=== PATIENT | female | born 2000 | race Caucasian/White ===

== ENCOUNTER 2021-01-13 21:37 | Emergency (ER) | payer SELFPAY ==
--- NOTE | 2021-01-13 22:00 | ED.SKABFB ---
HPI - Skin/Abscess/Foreign Bdy General Chief complaint: Skin/Abscess/Foreign Body Stated complaint: sore on abdomen/infection Time Seen by Provider: 01/13/21 22:00 Source: family Mode of arrival: ambulatory Limitations: no limitations History of Present Illness HPI narrative: 20-year-old female with autism presents to the ER with a 3 day history of -- left lower quadrant 5 cm diameter tender indurated erythematous lesion with the 2 cm central raised area patient refused any blood work. MD complaint: rash and other ( Cellulitis left lower anterior abdominal wall) Onset (ago): day(s) ( 3 days) Tetanus up to date: unsure ( patient's grandmother refused tetanus immunization. She will follow-up with PCP) Location: generalized ( left lower anterior abdominal wall) Severity: mild Severity scale (1-10): 3 Quality: aching Pain Consistency: constant Relieving factors: none Exacerbating factors: none Associated symptoms: denies other symptoms Treatments prior to arrival: none Related Data Home Medications Medication Instructions Recorded Confirmed No Home Medications 01/13/21 01/13/21 Allergies Allergy/AdvReac Type Severity Reaction Status Date / Time No Known Allergies Allergy Verified 01/13/21 22:20 Review of Systems Review of Systems: All systems reviewed & are unremarkable except as noted in HPI and below ROS unobtainable: Yes other ( patient has cognitive impairment. Unable to answers questions appropria) Constitutional: Constitutional: Reports no additional constitutional complaints Comments: no fever or chills. Eyes: Eyes: Reports no additional eye complaints ENT: Reports system reviewed and no additional complaints, except as documented Cardiovascular: Cardiovascular: Reports no additional cardiovascular complaints Respiratory: Respiratory: Reports no additional respiratory complaints Gastrointestinal: Gastrointestinal: Reports no additional gastrointestinal complaints Genitourinary: Genitourinary: Reports no additional female genitourinary complaints Musculoskeletal: Musculoskeletal: Reports no additional musculoskeletal complaints Integumentary/Breasts: Skin/Breast: Reports system reviewed and no additional complaints, except as docu Comments: Left lower anterior abdominal wall cellulitis measuring 5 cm in diameter Neurologic: Reports system reviewed and no additional complaints, except as documented Psychiatric: Psychiatric: Reports other ( patient is autistic and unable to assess psychiatric status) Endocrine: Endocrine: Reports no additional endocrine complaints Hematologic/Lymphatic: Hematologic/Lymphatic: Reports no additional hematologic/lymphatic complaints Allergic/Immunologic: Allergic/Immunologic: Reports no additional allergic/immunologic complaints Exam Const: General: cooperative, healthy appearing and comfortable HENMT: Head: normal to inspection Ears: hearing grossly normal bilaterally General nose exam: Normal external nose present Face and sinus: normal facial exam Mouth: Yes Normal oral and palatal mucosa present Throat: posterior oropharynx normal Eyes: General: appearance normal, both eyes and all related structures Eyelids: eyelids normal Conjunctivae: conjunctivae normal Sclera: sclerae normal Pupils: Equal, round and reactive pupils present Neck: Neck: normal visual inspection and full ROM Thyroid: thyroid normal Chest: Chest palpation & inspection: normal inspection of the chest Resp: Effort & Inspection: normal respiratory effort and able to speak in complete sentences Cardio: Palpation: normal PMI Rate: regular rate Rhythm: regular rhythm Heart sounds: S1 normal heart sound present and S2 normal heart sound present GI: Inspection: normal to inspection : General: Yes no CVA tenderness Back/Spine/Pelvis: Back: no CVA tenderness Skin: General skin exam: normal color and other ( 5 cm claribel left lower anterior abdominal wall cellulitis . tender.
[2021-01-13 22:01] VITALS: BP 129/78; PULSE 97; RESP 16; TEMP 36.4; O2SAT 98
[2021-01-13 22:22] VITALS: BP 130/88; PULSE 88; RESP 16; TEMP 36.4; O2SAT 98
== END 2021-01-13 22:24 | disposition home or self-care (01) ==
PROVIDERS: Emergency Provider Internal Medicine Critical Care Medicine; PCP Family Medicine
DX: L03.311 Cellulitis of abdominal wall (principal)
CPT/HCPCS: 99283

== ENCOUNTER 2022-08-01 13:30 | Emergency (ER) | payer MEDICAID, SELFPAY ==
--- NOTE | ~2022-08-01 | XR_ITS ---
Left ankle Technique: AP, oblique, and lateral views were obtained. Clinical History: Pain Findings: No acute fracture or dislocation is seen. Osseous alignment is anatomic. Ankle mortise and other visualized joint spaces are preserved. Soft tissues are otherwise unremarkable. Impression: Unremarkable left ankle. Reviewed, dictated and finalized at location . Impression: Unremarkable left ankle.
[2022-08-01 13:43] VITALS: BP 138/83; PULSE 95; RESP 18; TEMP 36.4; O2SAT 99
--- NOTE | 2022-08-01 14:04 | ED.LOWEXIN ---
HPI - Extremity Injury (Lower) General Chief Complaint: Extremity Injury, Lower Stated Complaint: left ankle/foot pain Time Seen by Provider: 08/01/22 13:39 History of Present Illness HPI Narrative: Pt thinks she twisted her right ankle yesterday. Pt noted swelling and bruising to lateral ankle. Related Data Home Medications Medication Instructions Recorded Confirmed No Home Medications 01/13/21 08/01/22 Allergies Allergy/AdvReac Type Severity Reaction Status Date / Time No Known Allergies Allergy Verified 08/01/22 13:58 Review of Systems Review of Systems: All systems reviewed & are unremarkable except as noted in HPI and below Exam Const: General: healthy appearing Nutritional Appearance: well nourished Orientation/consciousness: patient oriented x3 Limitations: no limitations Skin: Other: bruising noted dependent areas right lateral foot/ankle Neuro: General: patient oriented x3, moves all extremities and no focal motor deficits Speech: normal speech Extrem: Other: tender lateral malleolus right with bruising and swelling noted Course Vital Signs Vital signs: Vital Signs Oxygen Delivery Room Air 08/01/22 13:37 Temperature 97.6 F 08/01/22 13:43 Pulse Rate 95 08/01/22 13:43 Respiratory Rate 18 08/01/22 13:43 Blood Pressure 138/83 08/01/22 13:43 Pulse Oximetry 99 08/01/22 13:43 Oxygen Delivery Room Air 08/01/22 13:43 Discharge Plan Discharge Prescriptions: No Action No Home Medications Follow-up/Referrals: Kenyon Santillan MD [Primary Care Provider] -
[2022-08-01 14:40] VITALS: BP 130/78; PULSE 88; RESP 18; O2SAT 98
== END 2022-08-01 14:40 | disposition home or self-care (01) ==
PROVIDERS: Emergency Provider Emergency Medicine; PCP Family Medicine
DX: S93.402A Sprain of unspecified ligament of left ankle, initial encounter (principal); X50.0XXA Overexertion from strenuous movement or load, initial encounter
CPT/HCPCS: 73610; 99283

== ENCOUNTER 2022-09-20 11:32 | Outpatient (CLI) | payer MEDICAID, SELFPAY ==
--- NOTE | ~2022-09-20 | XR_ITS ---
Left ankle Technique: AP, oblique, and lateral views were obtained. Clinical History: Pain Findings: No acute fracture or dislocation is seen. Osseous alignment is anatomic. Ankle mortise and other visualized joint spaces are preserved. Soft tissues are otherwise unremarkable. Impression: Unremarkable left ankle. Reviewed, dictated and finalized at location . Impression: Unremarkable left ankle.
== END 2022-09-20 11:33 | disposition home or self-care (01) ==
LOC: CHSIMG 11:35
PROVIDERS: PCP Family Medicine; Visit Provider Family Medicine
DX: M25.572 Pain in left ankle and joints of left foot (principal)
CPT/HCPCS: 73610

== ENCOUNTER 2022-10-02 14:38 | Outpatient (RCR) | payer MEDICAID, SELFPAY ==
--- NOTE | 2022-09-25 10:31 | PCPTNOTE ---
patient had to cancel her PT evaluation today. she is having a tough day, and her family is unable to get her here today. she is scheduled for PT evaluation next week on Saturday10/02/22.
--- NOTE | 2022-10-03 07:44 | OPREHPOC ---
Outpatient Therapy Plan of Care This is a Multidisciplinary Plan of Care that may contain components documented by all disciplines (PT, OT, and ST.) PT Problem 1 PT Problem #1 Knowledge Deficit PT Goal 1 Goal 1. Patient/family to be independent with HEP to improve progress made in PT. Target Visit 4 PT Problem 2 PT Problem #2 Impaired Range of Motion PT Goal 1 Goal 1. Patient to achieve 10 degrees of AROM R ankle dorsiflexion to aid in equalizing step length during ambulation. Target Visit 9 PT Problem 3 PT Problem #3 Impaired Strength PT Goal 1 Goal 1. Patient to improve R ankle eversion and inversion strength to at least 4/5 to improve ability to perform single leg balance activities. Target Visit 9 PT Problem 4 PT Problem #4 Impaired Functional Mobil PT Goal 1 Goal 1. Patient to improve LEFS score to 5% or less functional decline to improve her ability to walk longer distances in community. 2. Patient to descend stairs without increase in pain to increase her tolerance for mobility in the home. 3. normal gait mechanics on level/firm surface Target Visit 9
--- NOTE | 2022-10-18 14:28 | PCPTNOTE ---
patient called and cancelled therapy today due to a conflict in schedule with her ride. JeraldTF
--- NOTE | 2022-11-01 12:04 | OPREHPOC ---
Outpatient Therapy Plan of Care This is a Multidisciplinary Plan of Care that may contain components documented by all disciplines (PT, OT, and ST.) PT Problem 1 PT Problem #1 Knowledge Deficit PT Goal 1 Goal 1. Patient/family to be independent with HEP to improve progress made in PT. Target Visit 4 Progress Met PT Problem 2 PT Problem #2 Impaired Range of Motion PT Goal 1 Goal 1. Patient to achieve 10 degrees of AROM R ankle dorsiflexion to aid in equalizing step length during ambulation. Target Visit 9 Progress Not Met PT Problem 3 PT Problem #3 Impaired Strength PT Goal 1 Goal 1. Patient to improve R ankle eversion and inversion strength to at least 4/5 to improve ability to perform single leg balance activities. Target Visit 9 Progress Met PT Problem 4 PT Problem #4 Impaired Functional Mobil PT Goal 1 Goal 1. Patient to improve LEFS score to 5% or less functional decline to improve her ability to walk longer distances in community. 2. Patient to descend stairs without increase in pain to increase her tolerance for mobility in the home. 3. normal gait mechanics on level/firm surface Target Visit 9 Progress Met
--- NOTE | 2022-11-01 12:04 | PTOPDC ---
Assessment and note entered by Kaylen Matthews DPT Evaluation Information Assessment Status Re-evaluation Diagnosis L ankle pain Onset 09/21/22 Subjective Information Patient reports her ankle has been feeling better with only rare times. She reports she has been able to walking and navigate stairs with no increase in pain. Reported Pain Level Pain Score 0: Self Report Assessment PT Clinical Summary Patient was seen for 9 visits of skilled PT. Patient has met all goals besides ankle DF ROM. She scores 76% on LEFS indicating improved function. Patient has been able to return to all house hold activities with no reports of L ankle pain. Patient and her grandma are agreeable to discharge at this time. Plan of Care PT Services Indicated No
== END 2022-11-01 16:56 | disposition home or self-care (01) ==
LOC: CHSPT 14:38
PROVIDERS: PCP Family Medicine; Visit Provider Family Medicine
DX: M25.572 Pain in left ankle and joints of left foot (principal)
CPT/HCPCS: 97110; 97112; 97161

== ENCOUNTER 2023-08-31 15:48 | Outpatient (CLI) | payer OTHER, SELFPAY ==
--- NOTE | ~2023-08-31 | XR_ITS ---
EXAMINATION: XR finger 5th LT min 2V DATE: 08/31/2023 16:13 INDICATION: Pain at the left fifth digit TECHNIQUE: Dorsal palmar, lateral and 2 oblique views of the left fifth digit were obtained COMPARISON: None FINDINGS: Alignment is normal. No fracture. Joint spaces are normal. Soft tissues are unremarkable. IMPRESSION: 1. Negative left fifth digit radiographs. Reviewed, dictated and finalized at location A.
[2023-08-31 16:21] LABS: Appearance Urine Clear (Clear); Bilirubin Urine Negative (Negative); Blood Urine Negative (Negative); Color Urine Light Yellow (Yellow); Glucose Urine UA 3+ (Negative); Ketones Urine Negative (Negative); Leukocyte Esterase Ur Negative (Negative); Nitrate Urine Negative (Negative); Protein Urine Negative (Negative); Urobilinogen Urine 0.2 mg/dL (0.2-1.0); pH Urine 6.5 (5.0-8.0)
[2023-08-31 16:28] LABS: Add Urine Microscopic? YES; RBC Urine 0-2 /hpf (0-2); Squamous Epithelial Cell Urine Occasional /hpf (Few); WBC Urine 0-3 /hpf (0-3)
== END 2023-08-31 15:49 | disposition home or self-care (01) ==
LOC: CHSLAB 15:55
PROVIDERS: PCP Family Medicine; Visit Provider Family Medicine
DX: E11.9 Type 2 diabetes mellitus without complications (principal)
CPT/HCPCS: 73140; 81001

== ENCOUNTER 2024-05-12 16:50 | Outpatient (CLI) | payer OTHER, SELFPAY ==
[2024-05-12 17:56] LABS: Basophils Absolute Auto 0.06 K/mm3 (0.00-0.10); Basophils Percent Auto 0.6 % (0.0-1.0); Eosinophils Absolute Auto 0.04 K/mm3 (0.02-0.50); Eosinophils Percent Auto 0.4 % (1.0-6.0); Hematocrit 49.9 % (35.0-49.0); Hemoglobin 16.8 g/dL (12.0-15.0); Immature Granulocyte Absolute 0.02 K/mm3 (0.00-0.00); Immature Granulocyte Percent A 0.2 % (0.0-0.0); Lymphocytes Absolute Auto 2.69 K/mm3 (1.10-4.50); Lymphocytes Percent Auto 27.1 % (18.0-42.0); Mean Corpuscular HGB Conc 33.7 g/dL (32-36); Mean Corpuscular Hemoglobin 29.8 pg (27.0-31.0); Mean Corpuscular Volume 88.5 fL (78.0-102.0); Mean Platelet Volume 11.8 fl (9.2-11.8); Monocytes Absolute Auto 0.55 K/mm3 (0.10-0.90); Monocytes Percent Auto 5.5 % (2.0-11.0); Neutrophils Absolute Auto 6.55 K/mm3 (1.70-7.20); Neutrophils Percent Auto 66.2 % (50.0-70.0); Platelet Count Result 271 K/mm3 (150-420); Red Blood Count 5.64 M/mm3 (4.20-5.40); Red Cell Distribution Width 11.8 % (11.6-14.4); White Blood Count 9.9 K/mm3 (4.8-10.8)
[2024-05-12 18:21] LABS: Alanine Aminotransferase 26 U/L (14-59); Albumin Level 4.3 g/dL (3.4-5.0); Alkaline Phosphatase 65 U/L (46-116); Anion Gap 10 mmol/L (4-12); Aspartate Amino Transferase 17 U/L (15-37); Bilirubin,Total 0.7 mg/dL (0.00-1.00); Blood Urea Nitrogen 16 mg/dL (7-18); Calcium 9.8 mg/dL (8.5-10.1); Carbon Dioxide 28 mmol/L (21-32); Chloride 98 mmol/L (98-108); Estimated Glomerular Filt Rate > 60; Glucose 135 mg/dL (70-99); Osmolality Calculated 285 mOsm/kg (285-295); Potassium 3.8 mmol/L (3.5-5.1); Sodium 136 mmol/L (136-145); Thyroid Stimulating Hormone 3.74 uIU/mL (0.36-3.74); Total Protein 8.2 g/dL (6.4-8.2)
[2024-05-12 18:27] LABS: Hemoglobin A1C 6.8 % (<5.7)
[2024-05-17 20:59] LABS: Glutamic acid decarboxylase AA <5 IU/mL (<5)
== END 2024-05-12 16:51 | disposition home or self-care (01) ==
LOC: CHSLAB 16:51
PROVIDERS: PCP Family Medicine; Visit Provider Family Medicine
DX: E11.9 Type 2 diabetes mellitus without complications (principal)
CPT/HCPCS: 36415; 80053; 83036; 84443; 85025; 86337; 86341

== ENCOUNTER 2024-05-18 11:03 | Outpatient (CLI) | payer OTHER, SELFPAY ==
[2024-05-18 11:28] LABS: Creatinine Urine 111.29 mg/dL (40-278); MALB Creatinine Ratio 11.6 mg/g (0-30); Microalbumin Urine Random < 13.0 mg/L
== END 2024-05-18 11:04 | disposition home or self-care (01) ==
LOC: CHSLAB 11:04
PROVIDERS: PCP Family Medicine; Visit Provider Family Medicine
DX: E11.9 Type 2 diabetes mellitus without complications (principal)
CPT/HCPCS: 82043

== ENCOUNTER 2025-01-04 10:38 | Outpatient (CLI) | payer OTHER, SELFPAY ==
[2025-01-04 11:11] LABS: Add Urine Microscopic? NO; Appearance Urine Clear (Clear); Glucose Urine UA 3+ (Negative); Leukocyte Esterase Ur Negative (Negative); Nitrate Urine Negative (Negative); Specific Grav Ur 1.020 (1.010-1.020)
[2025-01-04 11:13] LABS: Hematocrit 50.0 % (35.0-49.0); Hemoglobin 16.7 g/dL (12.0-15.0); Immature Granulocyte Percent A 0.3 % (0.0-0.0); Lymphocytes Absolute Auto 1.99 K/mm3 (1.10-4.50); Mean Corpuscular HGB Conc 33.4 g/dL (32-36); Mean Corpuscular Hemoglobin 29.9 pg (27.0-31.0); Mean Corpuscular Volume 89.6 fL (78.0-102.0); Nucleated Red Blood Cells Absolute Auto 0.00 K/mm3 (0.00-0.00); Nucleated Red Blood Cells Perc 0.0 % (0-0.0); Platelet Count Result 275 K/mm3 (150-420); Red Blood Count 5.58 M/mm3 (4.20-5.40); White Blood Count 7.9 K/mm3 (4.8-10.8)
[2025-01-04 11:28] LABS: Hemoglobin A1C 6.6 % (<5.7); MALB Creatinine Ratio 7.1 mg/g (0-30)
[2025-01-04 11:47] LABS: Alanine Aminotransferase 17 U/L (6-35); Albumin Level 4.9 g/dL (3.5-5.1); Alkaline Phosphatase 58 U/L (38-126); Anion Gap 12 mmol/L (4-12); Aspartate Amino Transferase 18 U/L (14-36); Bilirubin,Total 0.7 mg/dL (0.2-1.3); Blood Urea Nitrogen 19 mg/dL (7-17); Calcium 10.0 mg/dL (8.4-10.2); Carbon Dioxide 23 mmol/L (22-30); Chloride 103 mmol/L (98-107); Estimated Glomerular Filt Rate > 60; Glucose 152 mg/dL (65-110); Osmolality Calculated 291 mOsm/kg (285-295); Potassium 4.4 mmol/L (3.4-5.0); Sodium 138 mmol/L (137-145); Total Protein 7.4 g/dL (6.3-8.2)
[2025-01-04 12:18] LABS: Thyroid Stimulating Hormone 3.650 uIU/mL (0.465-4.680)
== END 2025-01-04 10:39 | disposition home or self-care (01) ==
LOC: CHSLAB 10:41
PROVIDERS: PCP Family Medicine; Visit Provider Family Medicine
DX: E11.9 Type 2 diabetes mellitus without complications (principal)
CPT/HCPCS: 36415; 80053; 81003; 82043; 83036; 84443; 85025